=== PATIENT | female | born 1990 | race Caucasian/White ===

== ENCOUNTER → 2024-01-21 15:49 | Outpatient (REF) | payer OTHER, SELFPAY | LOC: PNTC 15:49 | PROVIDERS: ATTENDING PHYSICIAN Obstetrics & Gynecology | DX: Z36.0 Encounter for antenatal screening for chromosomal anomalies (principal); Z36.82 Encounter for antenatal screening for nuchal translucency | CPT/HCPCS: 76801; 76813 ==

== ENCOUNTER 2024-07-23 17:12 | Inpatient (IN) | payer OTHER, SELFPAY ==
[2024-07-23 17:24] VITALS: BP 124/80; BMI 22.1
[2024-07-23] MEDS: SUBLIMAZE 100 MCG EPIDURAL (19:01)
[2024-07-23] MEDS: FENTANYL/BUPIVACAINE 100 EPIDURAL (19:02)
[2024-07-23 19:11] LABS: % Basophils 0.6 % (0-2); % Eosinophils 0.5 % (0-6); % Immature Granulocytes 0.4 % (0-0.5); % Lymphocytes 23.5 % (20.5-51.1); % Monocytes 8.6 % (1.7-9.3); % Neutrophils 66.4 % (42.2-75.2); Absolute Basophils 0.1 10^3/uL (0-0.2); Absolute Monocytes 0.7 10^3/uL (0.1-0.6); Absolute Neutrophils 5.7 10^3/uL (1.4-6.5); Hematocrit 35.2 % (37.0-47.0); Mean Corp Hgb Conc. 34.1 g/dL (33.0-37.0); Mean Corpuscular Hgb 30.8 pg (27.0-31.0); Mean Corpuscular Volume 90.5 fL (81.0-99.0); Mean Platelet Volume 12.9 fL (7.4-10.4); Nucleated Red Blood Cells % 0 %; Platelet Count 167 10^3/uL (130-400); Red Blood Cell Count 3.89 10^6/uL (4.20-5.40); Red Cell Dist. Width 12.8 % (11.5-14.5); White Blood Cell Count 8.5 10^3/uL (4.8-10.8)
[2024-07-23] MEDS: PITOCIN 30 UNITS/NSS 500 ML IV (19:41)
[2024-07-23] MEDS: XYLOCAINE-MPF 1% VIAL 30 ML INFIL (20:11)
[2024-07-23] MEDS: MOTRIN 600 MG PO (23:02)
[2024-07-23] MEDS: TYLENOL 650 MG PO (23:02)
[2024-07-24] MEDS: TYLENOL 650 MG PO ×3 (06:17→18:44)
[2024-07-24] MEDS: MOTRIN 600 MG PO ×3 (06:17→20:17)
[2024-07-24 06:24] LABS: Hematocrit 31.9 % (37.0-47.0); Hemoglobin 10.9 g/dL (12.0-16.0)
[2024-07-24] MEDS: PRENATAL PLUS 1 TABLET PO (07:57)
[2024-07-24] MEDS: SENOKOT-S 1 TABLET PO (08:19)
[2024-07-24 15:06] LABS: Syphilis/T. pallidum Ab Reflex Negative (Negative)
[2024-07-25] MEDS: TYLENOL 650 MG PO (00:23)
[2024-07-25] MEDS: MOTRIN 600 MG PO ×2 (02:47→08:28)
[2024-07-25] MEDS: PRENATAL PLUS 1 TABLET PO (08:20)
[2024-07-25] MEDS: SENOKOT-S 1 TABLET PO (08:28)
== END 2024-07-25 12:01 | disposition home or self-care (01) | DRG 807 ==
LOC: LDRP 17:12
PROVIDERS: ADMITTING PHYSICIAN Obstetrics & Gynecology
PROC: 0HQ9XZZ Repair Perineum Skin, External Approach (ICD-10-PCS; 2024-07-23)
PROC: 10E0XZZ Delivery of Products of Conception, External Approach (ICD-10-PCS; 2024-07-23)
DX: O42.02 Full-term premature rupture of membranes, onset of labor within 24 hours of rupture (principal); Z37.0 Single live birth; Z3A.39 39 weeks gestation of pregnancy; O70.0 First degree perineal laceration during delivery; J45.990 Exercise induced bronchospasm; Z88.0 Allergy status to penicillin; Z80.41 Family history of malignant neoplasm of ovary; Z80.8 Family history of malignant neoplasm of other organs or systems
CPT/HCPCS: 36415; 85014; 85018; 85025; 86780; 86850; 86900; 86901